=== PATIENT | female | born 1930 | race Two or more races ===

== ENCOUNTER 2020-11-22 00:11 | Inpatient (IN) | payer MEDICARE, OTHER ==
[~2020-11-22] VITALS: Ht 160 cm; Wt 65.8 kg
[2020-11-22 00:12] VITALS: BP 131/83
--- NOTE | 2020-11-22 00:12 | NUR ---
ED Nurse Note: Pt CHEYANNEOsiel RAErma from home, Per EMS report pt OD on methadone unknown amount. No medications given in field. Upon arrival pt is awake and drowsy, unable to assess orientation pt does not completely answer questions, cooperative with care able to follow directions. Pt is breathing even and unlabored. VSS on monitor.
--- NOTE | 2020-11-22 00:18 | Emergency Room Report ---
History of Present Illness General Chief Complaint: Altered Mental Status Source: Patient Present Illness HPI 89-year-old female with history of atrial fibrillation and chronic abdominal pain here with altered mental status. Patient takes tramadol and methadone prescribed for abdominal pain. Also takes Eliquis and metoprolol. According to family the patient has been lethargic and altered for the past several hours. They state that she did take her pain medications tonight. Patient is awake but drowsy. She is complaining of abdominal pain that is consistent with her chronic abdominal pain. Denies any headache, vision changes, neck pain, neck stiffness, fevers, chills, chest pain, palpitation, shortness of breath, back pain, nausea, vomiting, diarrhea, dysuria. Allergies: Coded Allergies: No Known Allergies (Unverified , 11/22/20) COVID-19 Screening Contact w/high risk pt: No Experienced COVID-19 symptoms?: No COVID-19 Testing performed MOTOR BRAKEMAN: No Nursing Documentation-PMH Hx Hypertension: Yes Hx Asthma: Yes Review of Systems All Other Systems: negative except mentioned in HPI Physical Exam Vital Signs Date Time Temp Pulse Resp B/P (MAP) Pulse Ox O2 Delivery O2 Flow Rate FiO2 11/22/20 00:11 98.4 105 12 131/83 (99) 98 Room Air Sp02 EP Interpretation: reviewed, normal General Appearance: no apparent distress, non-toxic, other - Slightly drowsy but is arousable answers questions appropriately Head: normocephalic, atraumatic Eyes: bilateral eye normal inspection, bilateral eye PERRL ENT: hearing grossly normal, normal pharynx, no angioedema, normal voice Neck: full range of motion, supple/symm/no masses Respiratory: chest non-tender, lungs clear, normal breath sounds, speaking full sentences Cardiovascular #1: regular rate, rhythm, no edema Cardiovascular #2: 2+ carotid (R), 2+ carotid (L), 2+ radial (R), 2+ radial (L), 2+ dorsalis pedis (R), 2+ dorsalis pedis (L) Gastrointestinal: normal bowel sounds, soft, non-distended, no guarding, no rebound, other - Mild epigastric abdominal tenderness on palpation without any rebound or guarding or distention Rectal: deferred Genitourinary: normal inspection, no CVA tenderness Musculoskeletal: back normal, normal range of motion, gait/station normal, non- tender Neurologic: alert, motor strength/tone normal, oriented x3, sensory intact, responsive, speech normal Psychiatric: judgement/insight normal, memory normal, mood/affect normal, no suicidal/homicidal ideation Lymphatic: no adenopathy Medical Decision Making Diagnostic Impression: Primary Impression: Altered mental status Additional Impressions: Pneumonia Afib ER Course Chest x-ray: Patchy densities right lung base indeterminate for atelectasis or pneumonia. Borderline cardiac enlargement. No pneumothorax or pleural effusion EKG: Atrial fibrillation, rate 102 bpm. Rightward axis. No ischemia, intervals WNL. No ectopy Rhythm strip: patient monitored for arrhythmias - no malignant dysrhythmias, runs of PVCs, nor pauses noted CT head: No acute intracranial findings CT abdomen pelvis: No acute findings. Indeterminate hepatic lesions with follow-up as above. There is also indeterminant prominent pancreatic ductal dilatation as above Laboratory Tests Test 11/22/20 00:20 11/22/20 00:50 White Blood Count 8.5 K/UL (4.8-10.8) Red Blood Count 4.94 M/UL (4.20-5.40) Hemoglobin 15.5 G/DL (12.0-16.0) Hematocrit 46.5 % (37.0-47.0) Mean Corpuscular Volume 94 FL (80-99) Mean Corpuscular Hemoglobin 31.4 PG (27.0-31.0) H Mean Corpuscular Hemoglobin Concent 33.4 G/DL (32.0-36.0) Red Cell Distribution Width 13.5 % (11.6-14.8) Platelet Count 200 K/UL (150-450) Mean Platelet Volume 9.5 FL (6.5-10.1) Neutrophils (%) (Auto) 48.6 % (45.0-75.0) Lymphocytes (%) (Auto) 35.4 % (20.0-45.0) Monocytes (%) (Auto) 9.8 % (1.0-10.0) Eosinophils (%) (Auto) 4.2 % (0.0-3.0) H Basophils (%) (Auto) 2.0 % (0.0-2.0) Prothrombin Time 11.3 SEC (9.30-11.50) Prothrombin Time INR 1.0 (0.9-1.1) Activated Partial Thromboplast Time 27 SEC (23-33) Sodium Level 135 MMOL/L (136-145) L Potassium Level 4.9 MMOL/L (3.5-5.1) Chloride Level 96 MMOL/L (98-107) L Carbon Dioxide Level 33 MMOL/L (21-32) H Anion Gap 6 mmol/L (5-15) Blood Urea Nitrogen 31 mg/dL (7-18) H Creatinine 1.3 MG/DL (0.55-1.30) Estimated Glomerular Filtration Rate 38.6 mL/min (>60) Glucose Level 120 MG/DL (74-106) H Lactic Acid Level 2.40 mmol/L (0.4-2.0) H Calcium Level 8.9 MG/DL (8.5-10.1) Magnesium Level 2.1 MG/DL (1.8-2.4) Total Bilirubin 1.0 MG/DL (0.2-1.0) Aspartate Amino Transferase (AST) 49 U/L (15-37) H Alanine Aminotransferase (ALT) 30 U/L (12-78) Alkaline Phosphatase 83 U/L (46-116) Creatine Kinase MB 0.9 NG/ML (0.0-3.6) Troponin I 0.004 ng/mL (0.000-0.056) Pro-B-Type Natriuretic Peptide 796 pg/mL (0-125) H Total Protein 8.0 G/DL (6.4-8.2) Albumin 3.6 G/DL (3.4-5.0) Globulin 4.4 g/dL Albumin/Globulin Ratio 0.8 (1.0-2.7) L Lipase 680 U/L (73-393) H Urine Color Pale yellow Urine Appearance Clear Urine pH 5 (4.5-8.0) Urine Specific [place] 1.010 (1.005-1.035) Urine Protein Negative (NEGATIVE) Urine Glucose (UA) Negative (NEGATIVE) Urine Ketones Negative (NEGATIVE) Urine Blood Negative (NEGATIVE) Urine Nitrite Negative (NEGATIVE) Urine Bilirubin Negative (NEGATIVE) Urine Urobilinogen Normal MG/DL (0.0-1.0) Urine Leukocyte Esterase Negative (NEGATIVE) Urine Opiates Screen Negative (NEGATIVE) Urine Barbiturates Screen Negative (NEGATIVE) Phencyclidine (PCP) Screen Negative (NEGATIVE) Urine Amphetamines Screen Negative (NEGATIVE) Urine Benzodiazepines Screen Negative (NEGATIVE) Urine Cocaine Screen Negative (NEGATIVE) Urine Marijuana (THC) Screen Negative (NEGATIVE) 89-year-old female here with drowsiness. Review of the patient's cures shows that the patient frequently takes Clarion and methadone multiple times a day for her chronic abdominal pain. Patient was mildly drowsy on arrival to the emergency department but after several hours this resolved without any acute intervention. Patient had a mildly elevated lactate of 2.4. Chest x-ray also showed a right lower lobe infiltrate concerning for pneumonia. Patient was given a full 30 cc/kg fluid bolus and was started on ceftriaxone and azithromycin for community-acquired pneumonia. Patient has not recently been admitted to a hospital. She has a history of atrial fibrillation on Eliquis. EKG showed atrial fibrillation with a normal heart rate. Patient was found to be post Covid positive. Was given Decadron. Had normal oxygen saturation and otherwise normal vital signs throughout her stay in the emergency department. Patient had normal vital signs throughout her stay in the emergency department. To be admitted to [facility]. Last Vital Signs Date Time Temp Pulse Resp B/P (MAP) Pulse Ox O2 Delivery O2 Flow Rate FiO2 11/22/20 00:11 98.4 105 12 131/83 (99) 98 Room Air Hemant Byrd M.D. Nov 22, 2020 00:18
[2020-11-22] MEDS ORDERED: Omnipaque-300 100ml vial INJ PRN (00:30)
--- NOTE | 2020-11-22 00:30 | NUR ---
ED Nurse Note: pt taken to CT via gurney accompanied by CT staff.
--- NOTE | 2020-11-22 00:30 | NUR ---
ED Nurse Note: blood, cultures, and lactic collected and sent to lab
[2020-11-22 00:39] LABS: EOSINOPHILS % (AUTO) 4.2 % (0.0-3.0); HEMATOCRIT 46.5 % (37.0-47.0); HEMOGLOBIN 15.5 G/DL (12.0-16.0); LYMPHOCYTES % (AUTO) 35.4 % (20.0-45.0); MEAN CORPUSCULAR VOLUME 94 FL (80-99); MONOCYTES % (AUTO) 9.8 % (1.0-10.0); NEUTROPHILS % (AUTO) 48.6 % (45.0-75.0); PLATELET COUNT 200 K/UL (150-450); RED BLOOD COUNT 4.94 M/UL (4.20-5.40); RED CELL DISTRIBUTION WIDTH 13.5 % (11.6-14.8); WHITE BLOOD COUNT 8.5 K/UL (4.8-10.8)
--- NOTE | 2020-11-22 00:43 | NUR ---
ED Nurse Note: pt back from CT in stable condition.
--- NOTE | 2020-11-22 00:45 | NUR ---
ED Nurse Note: assistive technology specialist at bedside
--- NOTE | 2020-11-22 00:47 | Diagnostic Imaging Report ---
EXAM: CT Head Without Intravenous Contrast CLINICAL HISTORY: AMS TECHNIQUE: Axial computed tomography images of the head/brain without intravenous contrast. CTDI is 53.40 mGy and DLP is 992.10 mGy-cm. One or more of the following dose reduction techniques were used: automated exposure control, adjustment of the mA and/or kV according to patient size, use of iterative reconstruction technique. COMPARISON: No relevant prior studies available. FINDINGS: Brain: Low-attenuation in the periventricular white matter likely chronic small vessel disease. No evidence of mass-effect or intracranial hemorrhage. Ventricles: Unremarkable. No ventriculomegaly. Bones/joints: Unremarkable. No acute fracture. Soft tissues: Unremarkable. Sinuses: Unremarkable as visualized. No acute sinusitis. Mastoid air cells: Unremarkable as visualized. No mastoid effusion. Other findings: Motion degraded study. IMPRESSION: No acute intracranial findings
[2020-11-22 00:52] LABS: CALCIUM 8.9 MG/DL (8.5-10.1); CREATININE 1.3 MG/DL (0.55-1.30); POTASSIUM 4.9 MMOL/L (3.5-5.1)
[2020-11-22 01:07] LABS: APPEARANCE,URINE CLEAR; BILIRUBIN, URINE NEGATIVE (NEGATIVE); COLOR,URINE PALE YELLOW; GLUCOSE, URINE (UA) NEGATIVE (NEGATIVE); KETONES,URINE NEGATIVE (NEGATIVE); LEUKOCYTE ESTERASE ,URINE NEGATIVE (NEGATIVE); NITRITE,URINE NEGATIVE (NEGATIVE); PH,URINE 5 (4.5-8.0); PROTEIN,URINE NEGATIVE (NEGATIVE); UROBILINOGEN,URINE NORMAL MG/DL (0.0-1.0)
[2020-11-22 01:21] LABS: ALBUMIN 3.6 G/DL (3.4-5.0); ALBUMIN/GLOBULIN RATIO 0.8 (1.0-2.7); CKMB 0.9 NG/ML (0.0-3.6)
--- NOTE | 2020-11-22 01:42 | Diagnostic Imaging Report ---
EXAM: XR Chest, 1 View CLINICAL HISTORY: AMS TECHNIQUE: Frontal view of the chest. COMPARISON: No relevant prior studies available. FINDINGS: Borderline cardiac enlargement. Patchy densities right lung base indeterminate for atelectasis or pneumonia. Follow-up to resolution recommended. Recommend upright PA and lateral views of the chest when clinically feasible. No evidence of pneumothorax or significant pleural fluid collections.
[2020-11-22] MEDS ORDERED: Azithromycin 500 MG in NS 275 ML IV ONE (02:00)
[2020-11-22] MEDS ORDERED: cefTRIAXone 1 GM in NS 55 ML IVPB ONE (02:00)
[2020-11-22] MEDS ORDERED: ELIQUIS5 MG ORAL (02:07)
[2020-11-22] MEDS ORDERED: METHADONE HCL10 MG ORAL (02:07)
[2020-11-22] MEDS ORDERED: FUROSEMIDE40 MG ORAL (02:07)
[2020-11-22] MEDS ORDERED: METOPROLOL SUCC25 MG ORAL (02:08)
--- NOTE | 2020-11-22 02:11 | NUR ---
ED Nurse Note: COVID swab sent to lab
--- NOTE | 2020-11-22 02:31 | Diagnostic Imaging Report ---
EXAM: CT Abdomen and Pelvis With Intravenous Contrast CLINICAL HISTORY: PAIN TECHNIQUE: Axial computed tomography images of the abdomen and pelvis with intravenous contrast. CTDI is 5.7 mGy and DLP is 279.1 mGy-cm. One or more of the following dose reduction techniques were used: automated exposure control, adjustment of the mA and/or kV according to patient size, use of iterative reconstruction technique. COMPARISON: No relevant prior studies available. FINDINGS: Artifacts: Motion degraded study. Lung bases: At least 2 subcentimeter pulmonary nodules in the superior portion of the right upper lobe with the largest measuring approximately 3 mm. Of unknown etiology or clinical significance in this elderly patient. Indeterminate low-attenuation lesion lateral periphery of the inferior right hepatic lobe measuring 22 x 29 mm. Finding does not meet criteria for a simple cyst. At least 2 additional subcentimeter low- attenuation foci in the right hepatic lobe. A 12 mm low-attenuation circumscribed focus posterior left hepatic lobe. Recommend consideration of nonemergent hepatic protocol CT or MRI. ABDOMEN: Liver: See above. Gallbladder and bile ducts: Unremarkable. No calcified stones. No ductal dilation. Pancreas: Moderate pancreatic ductal dilatation measuring up to 7 mm. Mass of the pancreas is not identified. Pancreatic protocol MRI can further evaluate. Spleen: Unremarkable. No splenomegaly. Adrenals: Unremarkable. No mass. Kidneys and ureters: Nonobstructing right lower renal pole calculus. Stomach and bowel: Diverticulosis of the colon without associated adjacent inflammatory changes. Negative for obstruction or pneumatosis. No mucosal thickening. PELVIS: Appendix: The appendix is normal. Bladder: Unremarkable. No mass. Reproductive: Unremarkable as visualized. ABDOMEN and PELVIS: Intraperitoneal space: Unremarkable. No free air. No significant fluid collection. Bones/joints: No acute fracture. No dislocation. Soft tissues: Unremarkable. Vasculature: Unremarkable. No abdominal aortic aneurysm. Lymph nodes: Unremarkable. No enlarged lymph nodes. IMPRESSION: No acute findings. Indeterminate hepatic lesions with follow-up as above. There is also indeterminate prominent pancreatic ductal dilatation as above.
[2020-11-22] MEDS ORDERED: dexAMETHasone 10mg/ml Inj IV ONE ×2 (02:42→02:45)
--- NOTE | 2020-11-22 03:01 | NUR ---
ED Nurse Note: repeat lactic sent to lab
--- NOTE | 2020-11-22 03:14 | NUR ---
ED Nurse Note: Report given to Leanna BURGOS for room 414-2
--- NOTE | 2020-11-22 03:27 | NUR ---
TRANSFER TO FLOOR: Patient transferred to as ordered, per ER MD. Report given to Leanna BURGOS. Belongings and medications sent with pt. Vitals are stable on RA.
[2020-11-22 04:00] VITALS: BP 106/61
--- NOTE | 2020-11-22 04:10 | NUR ---
NURSE NOTES: Received report from LORETTA Rae ED. Pt arrived @ 0330 via evelia, on RA, ambulatory. AAO x 2-3, communication barrier. Denies pain or SOB at this time. Home meds and belongings reviewed. IV in place and patent. Orientation to the room given. Left message Dr. Godinez for admission order. Bed locked, lowest position, alarm on, side rails up, call light within reach. Will continue to monitor.
--- NOTE | 2020-11-22 07:34 | NUR ---
NURSE HAND-OFF: Important Events on Shift:admission Patient Status: stable Diet: reg,soft Pending Orders: Pending Results/Labs:am labs Pending MD notification: Latest Vital Signs: Temperature 97.2 , Pulse 90 , B/P 106 /61 , Respiratory Rate 18 , O2 SAT 97 , Room Air, O2 Flow Rate . Vital Sign Comment: [] Latest Vidal Fall Score: 15 Fall Risk: Low Risk Safety Measures: Call light Within Reach, Bed Alarm Zone 1, Side Rails Side Rails x2, Bed position Low and Locked. Fall Precautions: Yellow Socks Yellow Gown Door Sign Patient Fall Education Report given to [Frankie].
--- NOTE | 2020-11-22 07:34 | NUR ---
NURSE NOTES: Received orders from Dr. Godinez. Orders entered and carried out
[2020-11-22 08:00] VITALS: BP 110/61
[2020-11-22 08:34] LABS: BASOPHILS % (AUTO) 1.4 % (0.0-2.0); EOSINOPHILS % (AUTO) 1.2 % (0.0-3.0); HEMATOCRIT 46.5 % (37.0-47.0); HEMOGLOBIN 14.6 G/DL (12.0-16.0); LYMPHOCYTES % (AUTO) 28.2 % (20.0-45.0); MEAN CORPUSCULAR VOLUME 96 FL (80-99); MONOCYTES % (AUTO) 3.5 % (1.0-10.0); NEUTROPHILS % (AUTO) 65.7 % (45.0-75.0); PLATELET COUNT 169 K/UL (150-450); RED BLOOD COUNT 4.85 M/UL (4.20-5.40); RED CELL DISTRIBUTION WIDTH 13.8 % (11.6-14.8); WHITE BLOOD COUNT 4.5 K/UL (4.8-10.8)
[2020-11-22] MEDS ORDERED: Enoxaparin 40mg Inj SUBQ SCH (09:00)
[2020-11-22 09:11] LABS: CREATININE 1.2 MG/DL (0.55-1.30); POTASSIUM 3.8 MMOL/L (3.5-5.1)
[2020-11-22] MEDS: Metoprolol Succinate XL 25mg tab ORAL SCH (10:02)
[2020-11-22] MEDS: Eliquis 5mg tablet ORAL SCH ×2 (10:02→18:24)
[2020-11-22 12:00] VITALS: BP 102/72
--- NOTE | 2020-11-22 15:27 | NUR ---
NURSE NOTES: Received pt from LORETTA Ocampo. pt is resting comfortably no acute distress, call light w/in reach.
--- NOTE | 2020-11-22 15:43 | History & Physical ---
History and Physical History & Physicial 89-year-old female with history of atrial fibrillation presents with lethargy and ALOC. Patient awake and comfortable when seen. She has chronic abdominal pain. Denies any headache, vision changes, neck pain, neck stiffness, fevers, chills, chest pain, palpitation, shortness of breath, back pain, nausea, v omiting, diarrhea, dysuria. COVID + in ER PMH hypertension and Asthma, atrial fibrillation,chronic pain syndrome MEDS/ALLERGIES: reviewed and reconciled SOCIAL HISTORY: nonsmoker nondrinker PHYSICAL deferred due to COVID Laboratory Tests 11/22/20 00:20: White Blood Count 8.5, Red Blood Count 4.94, Hemoglobin 15.5, Hematocrit 46.5, Mean Corpuscular Volume 94, Mean Corpuscular Hemoglobin 31.4H, Mean Corpuscular Hemoglobin Concent 33.4, Red Cell Distribution Width 13.5, Platelet Count 200, Mean Platelet Volume 9.5, Neutrophils (%) (Auto) 48.6, Lymphocytes (%) (Auto) 35.4, Monocytes (%) (Auto) 9.8, Eosinophils (%) (Auto) 4.2H, Basophils (%) (Auto) 2.0, Prothrombin Time 11.3, Prothromb Time International Ratio 1.0, Activated Partial Thromboplast Time 27, Sodium Level 135L, Potassium Level 4.9, Chloride Level 96L, Carbon Dioxide Level 33H, Anion Gap 6, Blood Urea Nitrogen 31H, Creatinine 1.3, Estimat Glomerular Filtration Rate 38.6, Glucose Level 120H , Lactic Acid Level 2.40H, Calcium Level 8.9, Magnesium Level 2.1, Total Bilirubin 1.0, Aspartate Amino Transf (AST/SGOT) 49H, Alanine Aminotransferase (ALT/SGPT) 30, Alkaline Phosphatase 83, Creatine Kinase MB 0.9, Troponin I 0.004, Pro-B-Type Natriuretic Peptide 796H, Total Protein 8.0, Albumin 3.6, Globulin 4.4, Albumin/Globulin Ratio 0.8L, Lipase 680H 11/22/20 00:50: Urine Color Pale yellow, Urine Appearance Clear, Urine pH 5, Urine Specific [place] 1.010, Urine Protein Negative, Urine Glucose (UA) Negative, Urine Ketones Negative, Urine Blood Negative, Urine Nitrite Negative, Urine Bilirubin Negative, Urine Urobilinogen Normal, Urine Leukocyte Esterase Negative, Urine Op iates Screen Negative, Urine Barbiturates Screen Negative, Phencyclidine (PCP) Screen Negative, Urine Amphetamines Screen Negative, Urine Benzodiazepines Screen Negative, Urine Cocaine Screen Negative, Urine Marijuana (THC) Screen Negative 11/22/20 03:00: Lactic Acid Level 1.00 11/22/20 08:20: White Blood Count 4.5L, Red Blood Count 4.85, Hemoglobin 14.6, Hematocrit 46.5, Mean Corpuscular Volume 96, Mean Corpuscular Hemoglobin 30.1, Mean Corpuscular Hemoglobin Concent 31.4L, Red Cell Distribution Width 13.8, Platelet Count 169, Mean Platelet Volume 8.2, Neutrophils (%) (Auto) 65.7, Lymphocytes (%) (Auto) 28.2, Monocytes (%) (Auto) 3.5, Eosinophils (%) (Auto) 1.2, Basophils (%) (Auto) 1.4, Sodium Level 140, Potassium Level 3.8, Chloride Level 102, Carbon Dioxide Level 32, Anion Gap 6, Blood Urea Nitrogen 25H, Creatinine 1.2, Estimat Glomerular Filtration Rate 42.3, Glucose Level 152H, Calcium Level 9.0 IMPRESSION COVID pneumonia hypertension Asthma ? pancreatitis elevated BNP lactic acidemia ho Atrial fib PLAN Decadron consider GI repeat amylase in am ID to see oxygen as needed monitor oxygen needs DVT prophylaxis home meds nutrition as able monitor labs and imaging Amos Godinez MD Nov 22, 2020 15:43
[2020-11-22 15:56] VITALS: BP 109/67
--- NOTE | 2020-11-22 19:35 | NUR ---
NURSE NOTES: Received patient on bed, awake. on room air, sating 94%. denies any pain or discomfort. iv access on left wrist running ivf as ordered. per LORETTA hartmann, " she took out iv access twice when she goes to the restroom".ambulates. reiterated to call and ask for assistance to prevent fall or injury. kept head of bed, elevated. bed locked and in lowest position. bed alarm director of marketing and promotions light and light button within easy reach. will continue plan of care.
--- NOTE | 2020-11-22 19:36 | NUR ---
HAND-OFF: Report given to LORETTA Saucedo. pt is stable condition
[2020-11-22 20:00] VITALS: BP 101/63
[2020-11-23] VITALS: BP 99/57
[2020-11-23] MEDS: cefTRIAXone 1 GM in D5W 55 ML IVPB SCH (01:08)
[2020-11-23 04:00] VITALS: BP 117/63
--- NOTE | 2020-11-23 04:00 | NUR ---
NURSE NOTES: patient walks to the hallway asking for food. snacks given. reiterated the importance of isolation.
--- NOTE | 2020-11-23 06:31 | NUR ---
NURSE HAND-OFF: Important Events on Shif: Patient Status:stable Diet: regular soft easy chew Pending Orders: Pending Results/Labs: Pending MD notification: Latest Vital Signs: Temperature 98.1 , Pulse 94 , B/P 117 /63 , Respiratory Rate 20 , O2 SAT 96 , Room Air, O2 Flow Rate 2.0 . Vital Sign Comment: Latest Vidal Fall Score: 60 Fall Risk: High Risk Safety Measures: Call light Within Reach, Bed Alarm Zone 1, Side Rails Side Rails x2, Bed position Low and Locked. Fall Precautions: Yellow Socks Yellow Gown Door Sign Patient Fall Education Addendum: 11/23/20 at 0726 by Sumaya Branch RN HAND-OFF: Report given to lyndsey khan.
--- NOTE | 2020-11-23 07:15 | NUR ---
NURSE NOTES: Received patient sitting on the edge of the bed, awake,confused, on room air,no sign of distress, RA, HL patent, not hooked to IVF, Patient saying she wants to go home, and asking where is her money, reality orientation provided. reiterated to call and ask for assistance to prevent fall or injury. kept head of bed, elevated. bed locked and in lowest position. bed alarm men's furnishings salesperson light and light button within easy reach. will continue plan of care. lyndsey dumas
[2020-11-23 08:20] VITALS: BP 145/78
[2020-11-23] MEDS: Metoprolol Succinate XL 25mg tab ORAL SCH (08:32)
[2020-11-23] MEDS: Eliquis 5mg tablet ORAL SCH ×2 (08:33→19:30)
[2020-11-23] MEDS: dexAMETHasone 10mg/ml Inj IV SCH (08:45)
--- NOTE | 2020-11-23 09:00 | NUR ---
nurse notes transferred to 411, for safety refused IVF Notified daughter made aware regarding patient condition left message to PMD regarding patient condition, lyndsey dumas
--- NOTE | 2020-11-23 09:31 | General Progress Note ---
Subjective ROS Limited/Unobtainable: No Constitutional: Reports: malaise, weakness HEENT: Reports: no symptoms Cardiovascular: Reports: no symptoms Respiratory: Reports: no symptoms Gastrointestinal/Abdominal: Reports: no symptoms Genitourinary: Reports: no symptoms Neurologic/Psychiatric: Reports: no symptoms Endocrine: Reports: no symptoms Hematologic/Lymphatic: Reports: no symptoms Allergies: Coded Allergies: No Known Allergies (Unverified , 11/22/20) All Systems: reviewed and negative except above Subjective no complaints. confused. states shes going home. ambulating around the room. sats nml on room air Objective Last 24 Hour Vital Signs Date Time Temp Pulse Resp B/P (MAP) Pulse Ox O2 Delivery O2 Flow Rate FiO2 11/23/20 08:32 94 117/63 11/23/20 08:20 98.7 102 19 145/78 (100) 96 11/23/20 08:20 Nasal Cannula 2.0 11/23/20 04:00 98.1 94 20 117/63 (81) 96 11/23/20 00:00 97.7 86 19 99/57 (71) 95 11/22/20 21:00 Nasal Cannula 2.0 11/22/20 20:00 97.9 93 18 101/63 (76) 95 11/22/20 15:56 97.3 90 18 109/67 (81) 93 11/22/20 12:00 97.0 80 18 102/72 (82) 94 11/22/20 10:02 81 110/62 Intake and Output 11/22/20 11/23/20 19:00 07:00 Intake Total 800 ml Balance 800 ml Intake Oral 800 ml # Voids 2 Height (Feet): 5 Height (Inches): 3.00 Weight (Pounds): 145 General Appearance: WD/WN, alert Neck: supple Cardiovascular: normal rate, regular rhythm Respiratory/Chest: chest wall non-tender, lungs clear, normal breath sounds, no respiratory distress, no accessory muscle use Abdomen: normal bowel sounds, non tender, soft, no organomegaly Edema: no edema noted Arm (L), no edema noted Arm (R), no edema noted Leg (L), no edema noted Leg (R) Neurologic: alert, responsive Assessment/Plan Problem List: (1) COVID-19 ICD Codes: U07.1 - COVID-19 SNOMED: 525078900 (2) Altered mental status ICD Codes: R41.82 - Altered mental status, unspecified SNOMED: 471891946 (3) Pneumonia ICD Codes: J18.9 - Pneumonia, unspecified organism SNOMED: 392986572 (4) Afib ICD Codes: I48.91 - Unspecified atrial fibrillation SNOMED: 90677914 Status: stable Assessment/Plan: o2 as needed steroids ID eval ?dc methaone eliquis monitor for bleeding pt/ot Enoc Weston MD Nov 23, 2020 09:31
[2020-11-23] MEDS: LORazepam 1mg tab ORAL PRN ×3 (09:40→20:20)
--- NOTE | 2020-11-23 09:40 | NUR ---
NURSE NOTES Patient very agitated ativan given as ordered, post 30 min patient less agitation noted lyndsey dumas
[2020-11-23 12:00] VITALS: BP 115/79
--- NOTE | 2020-11-23 12:00 | NUR ---
nurse notes patient very agitated, confused, pulling HL, water all over the floor nearly fall, holding her water pitcher, notified Dr Godinez awaiting for his order lyndsey dumas
--- NOTE | 2020-11-23 12:40 | NUR ---
nurse notes Sitter ordered for safety, charge nurse aware lyndsey dumas
--- NOTE | 2020-11-23 13:40 | Pulmonology Progress Note ---
Subjective ROS Limited/Unobtainable: No Allergies: Coded Allergies: No Known Allergies (Unverified , 11/22/20) All Systems: reviewed and negative except above Subjective agitated noncooperative walking around Objective Last 24 Hour Vital Signs Date Time Temp Pulse Resp B/P (MAP) Pulse Ox O2 Delivery O2 Flow Rate FiO2 11/23/20 12:00 97.6 88 17 115/79 (91) 96 11/23/20 09:40 94 19 117/63 96 11/23/20 08:32 94 117/63 11/23/20 08:20 98.7 102 19 145/78 (100) 96 11/23/20 08:20 Nasal Cannula 2.0 11/23/20 04:00 98.1 94 20 117/63 (81) 96 11/23/20 00:00 97.7 86 19 99/57 (71) 95 11/22/20 21:00 Nasal Cannula 2.0 11/22/20 20:00 97.9 93 18 101/63 (76) 95 11/22/20 15:56 97.3 90 18 109/67 (81) 93 Intake and Output 11/22/20 11/23/20 19:00 07:00 Intake Total 800 ml Balance 800 ml Intake Oral 800 ml # Voids 2 Objective deferred due to COVID Microbiology Date/Time Source Procedure Growth Status 11/22/20 02:00 Nasopharynx SARS-CoV-2 RdRp Gene Assay - Final Complete 11/22/20 00:20 Blood Blood Culture - Preliminary NO GROWTH AFTER 24 HOURS Resulted 11/22/20 00:15 Blood Blood Culture - Preliminary NO GROWTH AFTER 24 HOURS Resulted Current Medications Medications (Trade) Dose Ordered Sig/Harmeet Route PRN Reason Start Time Stop Time Status Last Admin Dose Admin Acetaminophen (Tylenol) 650 mg Q4H PRN ORAL For Pain 11/22/20 07:15 12/22/20 07:14 Al Hydroxide/Mg Hydroxide (Mylanta) 30 ml Q4H PRN ORAL STOMACH UPSET 11/22/20 07:15 12/22/20 07:14 Apixaban (Eliquis) 5 mg BID ORAL 11/22/20 09:00 02/20/21 08:59 11/23/20 08:33 Ceftriaxone Sodium 1 gm/ Dextrose 55 ml @ 110 mls/hr Q24H IVPB 11/23/20 02:00 1/24/21 01:59 11/23/20 01:08 Dexamethasone Sodium Phosphate (Decadron 10mg/ ml Inj) 6 mg DAILY IV 11/23/20 09:00 12/01/20 09:01 11/23/20 08:45 Iohexol (OMNIPAQUE-300 100ml) 100 ml NOW PRN INJ Radiology Procedure 11/22/20 00:30 11/24/20 00:29 Lorazepam (Ativan) 1 mg Q4H PRN ORAL For Anxiety 11/23/20 09:30 11/30/20 09:29 11/23/20 09:40 Methadone HCl (Methadone HCl) 10 mg DAILY ORAL 11/22/20 09:00 11/29/20 08:59 11/23/20 08:33 Metoprolol Succinate (Toprol XL) 25 mg DAILY ORAL 11/22/20 09:00 02/20/21 08:59 11/23/20 08:32 Pantoprazole (Protonix) 40 mg DAILY ORAL 11/22/20 09:00 12/22/20 08:59 11/23/20 08:32 Sodium Chloride 1,000 ml @ 100 mls/hr Q10H IV 11/22/20 07:15 12/22/20 07:14 11/23/20 03:43 Assessment/Plan Assessment/Plan IMPRESSION COVID pneumonia hypertension Asthma ? pancreatitis elevated BNP lactic acidemia ho Atrial fib PLAN Decadron consider GI pending repeat labs repeat amylase and lipase ID follow up oxygen as needed monitor oxygen needs DVT prophylaxis home meds nutrition as able monitor labs and imaging ativan PRN sitter impression, plan, and exam edited and reviewed in detail care discussed with Amos Rhodes MD Nov 23, 2020 13:40
--- NOTE | 2020-11-23 14:01 | NUR ---
nurse notes still very agitated, ativan given as ordered lyndsey dumas
--- NOTE | 2020-11-23 15:00 | NUR ---
nurse notes still patient very agitated inspite of giving ativan and have a sitter but still patient wants to go outside her room, notified Dr Godinez , with order lets try putting her with bilateral soft wrist restraint maggarao Addendum: 11/23/20 at 1917 by RON TELLO RN RN patient stilll agitated despite of all those preventing measures ,taking ativan and have a sitter, still wants to go outside of her room, notified Dr Godinez , with order ''lets try putting her with vest or bilateral soft wrist restraint, bilateral soft wrist restraint applied piter
--- NOTE | 2020-11-23 19:17 | NUR ---
NURSE HAND-OFF: Important Events on Shift:[on bilateral soft wrist restraint, ] Patient Status: [no change] Diet: [regular soft easy chew] Pending Orders: [labs ] Pending Results/Labs:[none] Pending MD notification:[none] Latest Vital Signs: Temperature 97.6 , Pulse 88 , B/P 115 /79 , Respiratory Rate 17 , O2 SAT 96 , Room Air, O2 Flow Rate 2.0 . Vital Sign Comment: [stable] Latest Vidal Fall Score: 60 Fall Risk: High Risk Safety Measures: Call light Within Reach, Bed Alarm Zone 1, Side Rails Side Rails x2, Bed position Low and Locked. Fall Precautions: Yellow Socks Yellow Gown Door Sign Patient Fall Education Report given to [Ms Jose Carlos RN].
--- NOTE | 2020-11-23 19:40 | NUR ---
NURSE NOTES: Received patient on bed, asleep. on room air, sating 96%. no facial grimacing. or moaning noted. iv access on left wrist. per LORETTA lima, " patient is confused and walks around inside her room and hallway." noted with bilateral soft wrist restraints, no injury noted. bed locked and in lowest position. bed alarm on. call light and light button within easy reach. will continue plan of care.
[2020-11-23 20:00] VITALS: BP 120/82
--- NOTE | 2020-11-23 20:15 | NUR ---
NURSE NOTES; went to the room. patient is sitting on the edge of the bed, trying to remove her gown. bilateral soft wrist restraints are off. assisted patient to go back to bed. put back restraints. reality orientation rendered. offered fluids. ativan given as ordered. bed locked and in lowest position. call light and light button within easy reach. bed alarm on.
--- NOTE | 2020-11-23 23:30 | NUR ---
NURSE NOTES: failed to hang ivf. attempted x2. patient is restless. moves around her upper extremities and kicks on the bed. reality orientation rendered. provided a calm environment and decrease stimuli.
[2020-11-24] VITALS (7 sets, daily range): BP systolic 108–152; BP diastolic 73–91
[2020-11-24] MEDS: LORazepam 1mg tab ORAL PRN ×2 (00:52→08:20)
[2020-11-24] MEDS: cefTRIAXone 1 GM in D5W 55 ML IVPB SCH (01:56)
--- NOTE | 2020-11-24 01:56 | NUR ---
NURSE NOTES: patient is asleep. hanged iv atb as ordered.
--- NOTE | 2020-11-24 06:04 | NUR ---
NURSE NOTES: patient is awake and calm. hanged ivf as ordered.
--- NOTE | 2020-11-24 06:11 | NUR ---
NURSE HAND-OFF: Important Events on Shift: episodes of restlessness Patient Status: stable Diet: regular Pending Orders: Pending Results/Labs: Pending MD notification: Latest Vital Signs: Temperature 97.4 , Pulse 68 , B/P 132 /85 , Respiratory Rate 20 , O2 SAT 97 , Room Air, O2 Flow Rate 2.0 . Vital Sign Comment: Latest Vidal Fall Score: 60 Fall Risk: High Risk Safety Measures: Call light Within Reach, Bed Alarm Zone 1, Side Rails Side Rails x2, Bed position Low and Locked. Fall Precautions: Yellow Socks Yellow Gown Door Sign Patient Fall Education Addendum: 11/24/20 at 0729 by Sumaya Branch RN HAND-OFF: Report given to lyndsey combs.
[2020-11-24 07:35] LABS: ALBUMIN 3.2 G/DL (3.4-5.0); BILIRUBIN,TOTAL 0.5 MG/DL (0.2-1.0); POTASSIUM 3.6 MMOL/L (3.5-5.1)
--- NOTE | 2020-11-24 07:45 | NUR ---
NURSE NOTES: Received report from Sheryl BURGOS, patient a/a/o x2 laying in bed with no signs of distress or other issues at this time. patient ambulates to the bathroom with unsteady gait, patient needs supervision. patient is COVID positive on RA, asymptomatic. IV on the left FA gauge#22 running 100ml/hr. call light within reach, bed in lowest position. side rales up x3 and soft BLE wrist restrains. I will f/u as needed. plan: possible d/c today
[2020-11-24] MEDS: Metoprolol Succinate XL 25mg tab ORAL SCH (08:12)
[2020-11-24] MEDS: Eliquis 5mg tablet ORAL SCH ×2 (08:13→17:47)
[2020-11-24] MEDS: dexAMETHasone 10mg/ml Inj IV SCH (08:17)
--- NOTE | 2020-11-24 11:34 | Pulmonology Progress Note ---
Subjective ROS Limited/Unobtainable: No Allergies: Coded Allergies: No Known Allergies (Unverified , 11/22/20) All Systems: reviewed and negative except above Subjective calmer off oxygen no distress daughter confirmed she has help at home Objective Last 24 Hour Vital Signs Date Time Temp Pulse Resp B/P (MAP) Pulse Ox O2 Delivery O2 Flow Rate FiO2 11/24/20 09:00 Room Air 11/24/20 08:50 68 20 132/85 97 11/24/20 08:20 68 20 132/85 97 11/24/20 08:12 68 132/85 11/24/20 08:00 97.3 74 18 124/78 (93) 96 11/24/20 04:00 97.4 68 20 132/85 (101) 97 11/24/20 01:22 73 20 126/79 99 11/24/20 00:52 75 20 138/91 98 11/24/20 00:00 97.1 75 20 138/91 (107) 98 11/23/20 21:00 Nasal Cannula 2.0 11/23/20 20:50 80 19 119/75 98 11/23/20 20:20 84 19 120/80 98 11/23/20 20:00 97.6 75 18 120/82 (95) 98 11/23/20 14:31 88 17 115/79 96 11/23/20 14:01 88 17 115/79 96 11/23/20 12:00 97.6 88 17 115/79 (91) 96 Intake and Output 11/23/20 11/24/20 19:00 07:00 Intake Total 350 ml 350 ml Balance 350 ml 350 ml Intake Oral 350 ml 240 ml IV Total 110 ml # Voids 2 2 Objective deferred due to COVID Microbiology Date/Time Source Procedure Growth Status 11/22/20 02:00 Nasopharynx SARS-CoV-2 RdRp Gene Assay - Final Complete 11/22/20 00:20 Blood Blood Culture - Preliminary NO GROWTH AFTER 48 HOURS Resulted 11/22/20 00:15 Blood Blood Culture - Preliminary NO GROWTH AFTER 48 HOURS Resulted Laboratory Tests 11/24/20 06:45: Sodium Level 143, Potassium Level 3.6, Chloride Level 105, Carbon Dioxide Level 33H, Anion Gap 5, Blood Urea Nitrogen 28H, Creatinine 1.0, Estimat Glomerular Filtration Rate 52.2, Glucose Level 105, Calcium Level 9.0, Total Bilirubin 0.5, Aspartate Amino Transf (AST/SGOT) 18, Alanine Aminotransferase (ALT/SGPT) 15, Alkaline Phosphatase 60, Total Protein 6.4, Albumin 3.2L, Globulin 3.2, Albumin/Globulin Ratio 1.0, Lipase 268, Thyroid Stimulating Hormone (TSH) 0.522 Current Medications Medications (Trade) Dose Ordered Sig/Harmeet Route PRN Reason Start Time Stop Time Status Last Admin Dose Admin Acetaminophen (Tylenol) 650 mg Q4H PRN ORAL For Pain 11/22/20 07:15 12/22/20 07:14 Al Hydroxide/Mg Hydroxide (Mylanta) 30 ml Q4H PRN ORAL STOMACH UPSET 11/22/20 07:15 12/22/20 07:14 Apixaban (Eliquis) 5 mg BID ORAL 11/22/20 09:00 02/20/21 08:59 11/24/20 08:13 Ceftriaxone Sodium 1 gm/ Dextrose 55 ml @ 110 mls/hr Q24H IVPB 11/23/20 02:00 11/30/20 01:59 11/24/20 01:56 Dexamethasone Sodium Phosphate (Decadron 10mg/ ml Inj) 6 mg DAILY IV 11/23/20 09:00 12/01/20 09:01 11/24/20 08:17 Lorazepam (Ativan) 1 mg Q4H PRN ORAL For Anxiety 11/23/20 09:30 11/30/20 09:29 11/24/20 08:20 Methadone HCl (Methadone HCl) 10 mg DAILY ORAL 11/22/20 09:00 11/29/20 08:59 11/24/20 08:12 Metoprolol Succinate (Toprol XL) 25 mg DAILY ORAL 11/22/20 09:00 02/20/21 08:59 11/24/20 08:12 Pantoprazole (Protonix) 40 mg DAILY ORAL 11/22/20 09:00 12/22/20 08:59 11/24/20 08:12 Assessment/Plan Assessment/Plan IMPRESSION COVID pneumonia hypertension Asthma ? pancreatitis elevated BNP lactic acidemia ho Atrial fib PLAN Decadron- dc for now; off oxygen repeat pancreatic enzyme normal repeat amylase and lipase no oxygen needed aspirin on discharge monitor after dc impression, plan, and exam edited and reviewed in detail care discussed with Amos Rhodes MD Nov 24, 2020 11:34
--- NOTE | 2020-11-24 14:07 | NUR ---
CASE MANAGEMENT:INITIAL REVIEW 11/23/2020 89 YR OLD FEMALE BIBA FROM HOME CC;ALTERED MENTAL STATUS SI; COVID PNEUMONIA. A-FIB. AMS. 98.6 105 12 131/83 98% ON RA NA- 135 CL- 96 CO2+ 33 BUN+ 31 GLU+ 120 AST+ 49 LAC ACID+ 2.40 BNP+ 796 LIPASE+ 680 UA ~ NEGATIVE URINE TOX ~ NEGATIVE COVID RAPID ~ POSITIVE CXR ~ Borderline cardiac enlargement. Patchy densities right lung base indeterminate for atelectasis or pneumonia. HEAD CT ~ No acute intracranial findings ABD/PELVIS CT ~ No acute findings. Indeterminate hepatic lesions with follow-up as above. There is also indeterminate prominent pancreatic ductal dilatation as above. IS;IVF NS BOLUS ROCEPHIN IV ZITHROMAX IV DECADRON IV ADMITTED TO MED SURG MED SURG STATUS DCP;PENDING HOSPITAL STAY CASE MANAGEMENT:CONCURRENT REVIEW 11/24/2020 SI;COVID PNEUMONIA. PANCREATITIS. LACTIC ACIDEMIA. 97.4 74 20 132/85 96% ON RA WBC- 4.5 CO2+ 33 BUN+ 28 ALB- 3.2 IS;ATIVAN PO Q4 PRN DECADRON IV QD ROCEPHIN IV Q24 TOPROL XL PO QD PROTONIX PO QD IVF NS @ 100 ML/HR ELIQUIS PO BID METHADONE PO QD MED SURG STATUS DCP;FROM HOME
--- NOTE | 2020-11-24 14:28 | General Progress Note ---
Subjective ROS Limited/Unobtainable: Yes Constitutional: Reports: malaise, weakness HEENT: Reports: no symptoms Cardiovascular: Reports: no symptoms Respiratory: Reports: no symptoms Gastrointestinal/Abdominal: Reports: no symptoms Genitourinary: Reports: no symptoms Neurologic/Psychiatric: Reports: no symptoms Endocrine: Reports: no symptoms Hematologic/Lymphatic: Reports: no symptoms Allergies: Coded Allergies: No Known Allergies (Unverified , 11/22/20) All Systems: reviewed and negative except above Subjective no complaints. confused. states shes going home. ambulating around the room. sats nml on room air Objective Last 24 Hour Vital Signs Date Time Temp Pulse Resp B/P (MAP) Pulse Ox O2 Delivery O2 Flow Rate FiO2 11/24/20 12:00 97.2 91 18 108/73 (85) 93 11/24/20 09:00 Room Air 11/24/20 08:50 68 20 132/85 97 11/24/20 08:20 68 20 132/85 97 11/24/20 08:12 68 132/85 11/24/20 08:00 97.3 74 18 124/78 (93) 96 11/24/20 04:00 97.4 68 20 132/85 (101) 97 11/24/20 01:22 73 20 126/79 99 11/24/20 00:52 75 20 138/91 98 11/24/20 00:00 97.1 75 20 138/91 (107) 98 11/23/20 21:00 Nasal Cannula 2.0 11/23/20 20:50 80 19 119/75 98 11/23/20 20:20 84 19 120/80 98 11/23/20 20:00 97.6 75 18 120/82 (95) 98 11/23/20 14:31 88 17 115/79 96 Intake and Output 11/23/20 11/24/20 19:00 07:00 Intake Total 350 ml 350 ml Balance 350 ml 350 ml Intake Oral 350 ml 240 ml IV Total 110 ml # Voids 2 2 Laboratory Tests 11/24/20 06:45: Sodium Level 143, Potassium Level 3.6, Chloride Level 105, Carbon Dioxide Level 33H, Anion Gap 5, Blood Urea Nitrogen 28H, Creatinine 1.0, Estimat Glomerular Filtration Rate 52.2, Glucose Level 105, Calcium Level 9.0, Total Bilirubin 0.5, Aspartate Amino Transf (AST/SGOT) 18, Alanine Aminotransferase (ALT/SGPT) 15, Alkaline Phosphatase 60, Total Protein 6.4, Albumin 3.2L, Globulin 3.2, Albumin/Globulin Ratio 1.0, Lipase 268, Thyroid Stimulating Hormone (TSH) 0.522 Height (Feet): 5 Height (Inches): 3.00 Weight (Pounds): 145 Objective General Appearance: WD/WN, alert Neck: supple Cardiovascular: normal rate, regular rhythm Respiratory/Chest: chest wall non-tender, lungs clear, normal breath sounds, no respiratory distress, no accessory muscle use Abdomen: normal bowel sounds, non tender, soft, no organomegaly Edema: no edema noted Arm (L), no edema noted Arm (R), no edema noted Leg (L), no edema noted Leg (R) Assessment/Plan Problem List: (1) COVID-19 ICD Codes: U07.1 - COVID-19 SNOMED: 670699821 (2) Altered mental status ICD Codes: R41.82 - Altered mental status, unspecified SNOMED: 672886526 (3) Pneumonia ICD Codes: J18.9 - Pneumonia, unspecified organism SNOMED: 774889501 (4) Afib ICD Codes: I48.91 - Unspecified atrial fibrillation SNOMED: 07697489 Status: stable Assessment/Plan: o2 as needed steroids ID eval ?dc methaone eliquis monitor for bleeding pt/ot Enoc Weston MD Nov 24, 2020 14:28
--- NOTE | 2020-11-24 18:58 | NUR ---
CHARGE NURSE NOTE: Pt's daughter is concerned that Pt is more confused, not talking properly, she wants to talk to . was called, message left, daughter's number provided.
--- NOTE | 2020-11-24 19:27 | NUR ---
NURSE HAND-OFF: Important Events on Shift: Patient Status: full code/ stable Diet: regular Pending Orders: [] Pending Results/Labs:[] Pending MD notification:[] Latest Vital Signs: Temperature 97.6 , Pulse 72 , B/P 130 /78 , Respiratory Rate 19 , O2 SAT 92 , Room Air, O2 Flow Rate 2.0 . Vital Sign Comment: stable Latest Vidal Fall Score: 60 Fall Risk: High Risk Safety Measures: Call light Within Reach, Bed Alarm Zone 1, Side Rails Side Rails x2, Bed position Low and Locked. Fall Precautions: Yellow Socks Yellow Gown Door Sign Patient Fall Education Report given to Kat BURGOS. patient in stable condition. - plan to d/c home today. - patients daughter and patient care director are aware. Kenyetta the caregiver will provide transportation. [phone] - IV removed
--- NOTE | 2020-11-24 19:30 | NUR ---
NURSE NOTES: Received patient for discharge. Bed alarm was activated, patient was attempting to get out of bed, bilateral soft wrist restraints was removed. Patient verbalized wanting to go to the bathroom. Patient gait unsteady, assisted with max assist to the bathroom and assisted back to bed. Patient appears confused, Farsi speaking, but able to be redirected. Bilateral soft wrist restraints were reapplied for safety and bed alarm was on. 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 Will continue to monitor.
--- NOTE | 2020-11-24 20:48 | Diagnostic Imaging Report ---
EXAM: CT Head Without Intravenous Contrast CLINICAL HISTORY: AMS TECHNIQUE: Axial computed tomography images of the head/brain without intravenous contrast. CTDI is 53.4 mGy and DLP is 1016.2 mGy-cm. One or more of the following dose reduction techniques were used: automated exposure control, adjustment of the mA and/or kV according to patient size, use of iterative reconstruction technique. COMPARISON: 11/22/2020. FINDINGS: Artifacts: Significant motion artifact which limits evaluation. Brain: Grossly, no abnormal extra-axial collection is detected. No hemorrhage. No significant white matter disease. Ventricles: The ventricular system is age appropriate. Bones/joints: Unremarkable. No acute fracture. Soft tissues: Unremarkable. Sinuses: Visualized sinuses are unremarkable. Mastoid air cells: Mastoid air cells are well pneumatized. IMPRESSION: 1. Near nondiagnostic evaluation due to extensive motion artifact. 2. Grossly, no acute intracranial pathology is detected. 3. Due to the markedly limited nature of the current study, reimaging following sedation or magnetic resonance imaging of the brain should be considered for further assessment, particularly if there is concern for subtle abnormalities.
--- NOTE | 2020-11-24 21:48 | NUR ---
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 Spoke with the daughter on the phone and she raised concerns regarding patient's increased confusion and hallucinations over the phone. 1949 Dr. Godinez called RN and asked how the patient was. Dr. Godinez was made aware that patient's gait was unsteady and that the daughter was was concern regarding her new onset confusion. According to report, patient's baseline was slightly confused but unable to assess at this time due to language barrier. Dr. Godinez ordered to hold DC tonight and ordered stat CT of the head and PT eval tomorrow morning. 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 [address] back from CT of the head. Awaiting for result. [address]144 Dr[address] Godinez made aware of CT head result and stated patient will be discharged in the AM. Family (daughter) made aware.
--- NOTE | 2020-11-24 22:02 | NUR ---
NURSE NOTES: Spoke to Daughter of Shireen Perez, who gave permission to speak to regarding patient, family requests not to have ativan to be given to patient. Will inform Primary nurse.
[2020-11-25] MEDS: cefTRIAXone 1 GM in D5W 55 ML IVPB SCH (01:02)
[2020-11-25 04:00] VITALS: BP_SYST 129; BP_SYST 148; BP_DIAS 77
--- NOTE | 2020-11-25 06:01 | NUR ---
NURSE NOTES: Dr. Weston in the unit. MD was updated with patient's status.
--- NOTE | 2020-11-25 07:12 | NUR ---
NURSE HAND-OFF: Important Events on Shift:[DC postponed until today.CT head negative. for PT eval] Patient Status: [eating] Diet: [Regular soft easy chew] Pending Orders: [] Pending Results/Labs:[] Pending MD notification:[] Latest Vital Signs: Temperature 97.8 , Pulse 98 , B/P 129 /77 , Respiratory Rate 18 , O2 SAT 93 , Room Air, O2 Flow Rate 2.0 . Vital Sign Comment: [] Latest Vidal Fall Score: 60 Fall Risk: High Risk Safety Measures: Call light Within Reach, Bed Alarm Zone 2, Side Rails Side Rails x2, Bed position Low and Locked. Fall Precautions: Yellow Socks Yellow Gown Door Sign Patient Fall Education Report given to [Sudarshan Booth RN].
--- NOTE | 2020-11-25 07:13 | NUR ---
NURSE NOTES: Received report from Kat BURGOS. Patient in bed, confused but pleasant, Farci speaking with limited Sinhala. No acute distress noted, on room air, no SOB. IV to left hand saline locked. Bilateral soft wrist restraints. Fall precautions in place, sign at door, side rails up x3, bed in lowest position, call light in reach, bed locked.
[2020-11-25 08:00] VITALS: BP 146/86
--- NOTE | 2020-11-25 08:30 | NUR ---
NURSE NOTES: patient was seen by . MD will discharge her after PT eval.
--- NOTE | 2020-11-25 08:50 | NUR ---
NURSE NOTES: patient was seen by PT. patient was able to walk with walker, needs some supervision for safety d/t patient trying to move fast. notified Dr. Godinez and ordered progressive 2000 [facility] upon discharge. Spoke to Shireen Olguin/daughter, she knows the patient's base line, also the patient has a homebound teacher who visit the patient daily
[2020-11-25] MEDS: Eliquis 5mg tablet ORAL SCH (09:00)
--- NOTE | 2020-11-25 09:05 | General Progress Note ---
Subjective ROS Limited/Unobtainable: No Constitutional: Reports: malaise, weakness HEENT: Reports: no symptoms Cardiovascular: Reports: no symptoms Respiratory: Reports: no symptoms Gastrointestinal/Abdominal: Reports: no symptoms Genitourinary: Reports: no symptoms Neurologic/Psychiatric: Reports: anxiety Endocrine: Reports: no symptoms Hematologic/Lymphatic: Reports: no symptoms Allergies: Coded Allergies: No Known Allergies (Unverified , 11/22/20) All Systems: reviewed and negative except above Subjective no complaints. wants to go home. per family pt is confused. unsteady when ambulating. no fevers or chills. no cough. tolerating po Objective Last 24 Hour Vital Signs Date Time Temp Pulse Resp B/P (MAP) Pulse Ox O2 Delivery O2 Flow Rate FiO2 11/25/20 08:00 97.7 87 18 146/86 (106) 95 11/25/20 04:00 97.8 98 18 129/77 (94) 93 11/24/20 23:35 97.3 70 18 138/91 (107) 93 11/24/20 21:00 Room Air 11/24/20 20:00 97.3 86 18 152/87 (108) 92 11/24/20 16:00 97.6 72 19 130/78 (95) 92 11/24/20 12:00 97.2 91 18 108/73 (85) 93 Intake and Output 11/24/20 11/25/20 19:00 07:00 Intake Total 610 ml 305 ml Balance 610 ml 305 ml Intake Oral 610 ml 250 ml IV Total 55 ml # Voids 3 3 Height (Feet): 5 Height (Inches): 3.00 Weight (Pounds): 145 Objective General Appearance: WD/WN, alert Neck: supple Cardiovascular: normal rate, regular rhythm Respiratory/Chest: chest wall non-tender, lungs clear, normal breath sounds, no respiratory distress, no accessory muscle use Abdomen: normal bowel sounds, non tender, soft, no organomegaly Edema: no edema noted Arm (L), no edema noted Arm (R), no edema noted Leg (L), no edema noted Leg (R) Assessment/Plan Problem List: (1) COVID-19 ICD Codes: U07.1 - COVID-19 SNOMED: 434517412 (2) Altered mental status ICD Codes: R41.82 - Altered mental status, unspecified SNOMED: 231434492 (3) Pneumonia ICD Codes: J18.9 - Pneumonia, unspecified organism SNOMED: 339815490 (4) Afib ICD Codes: I48.91 - Unspecified atrial fibrillation SNOMED: 30373654 Status: stable Assessment/Plan: o2 as needed eliquis monitor for bleeding pt/ot monitor neuro status- ?confused- ?due to steroids ?to to opiates Enoc Weston MD Nov 25, 2020 09:05
[2020-11-25] MEDS: Metoprolol Succinate XL 25mg tab ORAL SCH (09:41)
[2020-11-25] MEDS: dexAMETHasone 10mg/ml Inj IV SCH (09:45)
--- NOTE | 2020-11-25 10:16 | NUR ---
*-*DISCHARGE PLANNING*-* PATIENT HAS BEEN REFERRED TO: [facility] P: [phone] S/W PERI, WILL CALL BACK AFTER REVIEW.
--- NOTE | 2020-11-25 11:01 | Pulmonology Progress Note ---
Subjective ROS Limited/Unobtainable: No Allergies: Coded Allergies: No Known Allergies (Unverified , 11/22/20) All Systems: reviewed and negative except above Subjective calmer off oxygen no distress daughter confirmed she has help at home CT head negative Objective Last 24 Hour Vital Signs Date Time Temp Pulse Resp B/P (MAP) Pulse Ox O2 Delivery O2 Flow Rate FiO2 11/25/20 09:41 87 146/86 11/25/20 08:00 97.7 87 18 146/86 (106) 95 11/25/20 04:00 97.8 98 18 129/77 (94) 93 11/24/20 23:35 97.3 70 18 138/91 (107) 93 11/24/20 21:00 Room Air 11/24/20 20:00 97.3 86 18 152/87 (108) 92 11/24/20 16:00 97.6 72 19 130/78 (95) 92 11/24/20 12:00 97.2 91 18 108/73 (85) 93 Intake and Output 11/24/20 11/25/20 19:00 07:00 Intake Total 610 ml 305 ml Balance 610 ml 305 ml Intake Oral 610 ml 250 ml IV Total 55 ml # Voids 3 3 Objective deferred due to COVID Current Medications Medications (Trade) Dose Ordered Sig/Harmeet Route PRN Reason Start Time Stop Time Status Last Admin Dose Admin Acetaminophen (Tylenol) 650 mg Q4H PRN ORAL For Pain 11/22/20 07:15 12/22/20 07:14 Al Hydroxide/Mg Hydroxide (Mylanta) 30 ml Q4H PRN ORAL STOMACH UPSET 11/22/20 07:15 12/22/20 07:14 Apixaban (Eliquis) 5 mg BID ORAL 11/22/20 09:00 02/20/21 08:59 11/25/20 09:00 Ceftriaxone Sodium 1 gm/ Dextrose 55 ml @ 110 mls/hr Q24H IVPB 11/23/20 02:00 11/30/20 01:59 11/25/20 01:02 Dexamethasone Sodium Phosphate (Decadron 10mg/ ml Inj) 6 mg DAILY IV 11/23/20 09:00 12/01/20 09:01 11/25/20 09:45 Lorazepam (Ativan) 1 mg Q4H PRN ORAL For Anxiety 11/23/20 09:30 11/30/20 09:29 11/24/20 08:20 Methadone HCl (Methadone HCl) 10 mg DAILY ORAL 11/22/20 09:00 11/29/20 08:59 11/25/20 09:44 Metoprolol Succinate (Toprol XL) 25 mg DAILY ORAL 11/22/20 09:00 02/20/21 08:59 11/25/20 09:41 Pantoprazole (Protonix) 40 mg DAILY ORAL 11/22/20 09:00 12/22/20 08:59 11/25/20 09:41 Assessment/Plan Assessment/Plan IMPRESSION COVID pneumonia hypertension Asthma elevated BNP lactic acidemia ho Atrial fib PLAN Decadron- dc for now; off oxygen repeat pancreatic enzyme normal repeat amylase and lipase no oxygen needed aspirin on discharge monitor after dc will call HH daughter aware and is ok with dc impression, plan, and exam edited and reviewed in detail care discussed with Amos Rhodes MD Nov 25, 2020 11:01
--- NOTE | 2020-11-25 11:04 | NUR ---
*-*DISCHARGE PLAN*-* PATIENT HAS BEEN ACCEPTED WITH: [facility] P: [phone] S/W PERI, WILL SERVICE THIS PATIENT UPON DISCHARGE.
--- NOTE | 2020-11-25 11:30 | NUR ---
P.T NOTE: P.T EVALUATION COMPLETED AND TX INITIATED. PLEASE REFER TO P.T EVALUATION FOR CURRENT FUNCTIONAL STATUS.
[2020-11-25 12:00] VITALS: BP 130/89
--- NOTE | 2020-11-25 14:31 | NUR ---
NURSE NOTES: patient was discharge to home via child caregiver, sissy's car. no respiratory distress noted on room air. no pain at this time. provided dc packet and information of covid care at home. checked and counted belongings. missing belonging paper in chart. patient has dentures in cup. wearing her clothes. no cell phone. no glasses. patient unable to sign. spoke to Sissy, cable assembler. the patient needs stay home for self isolation. resume home medications. patient dc with [facility] but patient already has [facility]. child caregiver will call [facility] and cancel it.
--- NOTE | 2020-11-26 16:14 | Discharge Summary ---
Discharge Summary Discharge Summary _ Date of admission: 11/22/2020 Date of discharge: 11/25/[address] Godinez History of Present Illness and Brief Hospital Course Ms. Simpson is an 89-year-old female with history of hypertension, asthma, chronic pain syndrome, and atrial fibrillation, who presented to the ED for evaluation of lethargy and altered level of consciousness. According to the family patient appeared lethargic and altered for the past several hours prior to arrival. EKG showed atrial fibrillation at rate of 102. Her chest x-ray was notable for patchy densities in the right lung base without pneumothorax or pleural effusion. Her CT of head revealed no acute intracranial findings. Her CT abdomen pelvis showed no acute findings either. Patient did test positive for COVID-19 via rapid gene assay in the ER and was admitted to the hospital for further management. Given her hypoxia on arrival secondary to COVID-19 pneumonia, she was started with Decadron, a short course of antibiotics, and supplemental oxygen as needed. Over the next few days she was able to be weaned off of oxygen without any distress. Given her history of atrial fibrillation, DVT prophylaxis was initiated during admission. Given elevated LFTs on arrival, her amylase and lipase were monitored. Over the next few days, her status improved. She was also evaluated by a physical therapist. Patient was able to walk with a walker. After confirming that she has a caregiver coming to her home, she was discharged home with home health on 11/25/2020. consultants: Pulmonology Dr. Godinez Discharge Condition Improved and stable Discharge Activity Supervision recommended Final diagnoses COVID-19 Encephalopathy Pneumonia Atrial fibrillation History of asthma Elevated BNP Lactic acidemia I have been assigned to dictate discharge summary for this account. I was not involved in the patient's management Asa Stahl Nov 26, 2020 16:14
== END 2020-11-25 14:31 | disposition home health service (06) | DRG 177 ==
LOC: EDBD 00:11 → EMR 00:30 → 4E 02:06 → EDBEDREQ 02:59 → 4E 11-23 09:35
DX: U07.1 COVID-19 (principal); J12.82 Pneumonia due to coronavirus disease 2019; K85.90 Acute pancreatitis without necrosis or infection, unspecified; E87.2 Acidosis; G93.40 Encephalopathy, unspecified; I10 Essential (primary) hypertension; J45.909 Unspecified asthma, uncomplicated; G89.4 Chronic pain syndrome; R09.02 Hypoxemia; I48.91 Unspecified atrial fibrillation
CPT/HCPCS: 36415; 70450; 71045; 74177; 80048; 80053; 80307; 81003; 82553; 83605; 83690; 83735; 83880; 84443; 84484; 85025; 85610; 85730; 87040; 93005; 96361; 96365; 96367; 96375; 99285; J7030; U0002